=== PATIENT | male | born 1990 | race Caucasian/White ===

== ENCOUNTER 2017-06-15 16:15 | Emergency (ER) | payer SELFPAY ==
[~2017-06-15] VITALS: Ht 188 cm; Wt 113.5 kg
[~2017-06-15 16:15] MED LIST: ALPR.25 PO
[2017-06-15 16:17] VITALS: BP 152/100; PULSE 105; RESP 20; TEMP 98.6; O2SAT 99
[2017-06-15] MEDS ORDERED: SODIUM CHLORIDE 0.9% FLUSH 10 ML FLUSH IVF PRN (17:30)
[2017-06-15] MEDS ORDERED: KETOROLAC TROMETHAMINE 30 MG/ML (IVP) VIAL IV PUSH ONE (17:30)
[2017-06-15] MEDS ORDERED: METOCLOPRAMIDE HCL 10 MG/2 ML VIAL IV PUSH ONE (17:30)
--- NOTE | 2017-06-15 17:33 | PD ---
HPI Chief Complaint: Chest Pain Time Seen by Provider: 17:23 Travel History International Travel<30 days: No Contact w/Intl Traveler<30days: No Traveled to known affect area: No History of Present Illness HPI 27-year-old male here for evaluation of headache, chest pain, elevated blood pressure. Symptoms started 3 days ago with headache which the patient rates is diffuse, pressure-like. Headache is currently 6 out of 10, intermittently worse at times, improves slightly with ibuprofen/Tylenol. Patient also reports intermittent episodes of left-sided chest pressure/sharp pains that radiate to his left shoulder. Currently he denies having any chest pain. No known history of cardiac disease. He believes that there is family history of cardiac disease. No paresthesias or motor deficits. No dyspnea. Reports he has had a cough that is nonproductive. No neck pain or stiffness. He also complains of some intermittent blurry vision. States that he checked his blood pressure at home and noticed it to be as high as 160 systolic. PFSH Past Surgical History Other Surgery: Yes (LIVER BIOPSY 13 YEARS) Social History Alcohol Use: No Tobacco Use: No Allergies-Medications (Allergen,Severity, Reaction): Coded Allergies: No Known Allergies (Verified Adverse Reaction, Unknown, 06/15/17) Reported Meds & Prescriptions Reported Meds & Active Scripts Active Reported Xanax 0.25 Mg Tab (Alprazolam) 0.25 Mg Tab 0.25 Mg PO BID PRN Review of Systems Except as stated in HPI: all other systems reviewed are Neg Physical Exam Narrative GENERAL: Well-developed, well-nourished, notable, no apparent distress. SKIN: Focused skin assessment warm/dry. HEAD: Atraumatic. Normocephalic. EYES: Heels equal, round, 3 mm, reactive to light. No scleral icterus. No injection or drainage. ENT: No nasal bleeding or discharge. Mucous membranes pink and moist. NECK: Trachea midline. No JVD. CARDIOVASCULAR: Regular rate and rhythm. No murmur appreciated. Distal pulses brisk and equal bilaterally. RESPIRATORY: No accessory muscle use. Clear to auscultation. Breath sounds equal bilaterally. GASTROINTESTINAL: Abdomen soft, non-tender, nondistended. MUSCULOSKELETAL: No obvious deformities. No clubbing. No cyanosis. No edema. NEUROLOGICAL: Awake and alert. No obvious cranial nerve deficits. Motor grossly within normal limits. Normal speech. PSYCHIATRIC: Appropriate mood and affect; insight and judgment normal. Data Data Last Documented VS Vital Signs Date Time Temp Pulse Resp B/P (MAP) Pulse Ox O2 Delivery O2 Flow Rate FiO2 06/15/17 18:21 80 18 132/86 (101) 98 Room Air 06/15/17 17:19 98 06/15/17 16:17 98.6 Orders Orders Electrocardiogram (06/15/17 ) Electrocardiogram (06/15/17 17:28) Basic Metabolic Panel (Bmp) (06/15/17 17:28) Ckmb (Isoenzyme) Profile (06/15/17 17:28) Complete Blood Count With Diff (06/15/17:) Magnesium (Mg) (06/15/17:28) Prothrombin Time / Inr (Pt) (06/15/17:28) Act Partial Throm Time (Ptt) (06/15/17 17:28) Troponin I (06/15/17 17:28) Chest, Single Ap (06/15/17 17:28) Ecg Monitoring (06/15/17 17:28) Bilateral Bp Monitoring (06/15/17 17:28) Iv Access Insert/Monitor (06/15/17 17:28) Oximetry (06/15/17 17:28) Oxygen Administration (06/15/17 17:28) Sodium Chloride 0.9% Flush (Ns Flush) (06/15/17 17:30) Ct Brain W/O Iv Contrast(Rout) (06/15/17 ) Metoclopramide Inj (Reglan Inj) (06/15/17 17:30) Ketorolac Inj (Toradol Inj) (06/15/17 17:30) CKMB (06/15/17 17:53) CKMB% (06/15/17 17:53) Labs Laboratory Tests Test 06/15/17 17:53 White Blood Count 6.7 TH/MM3 Red Blood Count 5.24 MIL/MM3 Hemoglobin 16.9 GM/DL Hematocrit 45.3 % Mean Corpuscular Volume 86.5 FL Mean Corpuscular Hemoglobin 32.2 PG Mean Corpuscular Hemoglobin Concent 37.3 % Red Cell Distribution Width 12.5 % Platelet Count 197 TH/MM3 Mean Platelet Volume 8.2 FL Neutrophils (%) (Auto) 62.4 % Lymphocytes (%) (Auto) 27.1 % Monocytes (%) (Auto) 7.9 % Eosinophils (%) (Auto) 2.3 % Basophils (%) (Auto) 0.3 % Neutrophils # (Auto) 4.2 TH/MM3 Lymphocytes # (Auto) 1.8 TH/MM3 Monocytes # (Auto) 0.5 TH/MM3 Eosinophils # (Auto) 0.2 TH/MM3 Basophils # (Auto) 0.0 TH/MM3 CBC Comment AUTO DIFF Differential Comment AUTO DIFF CONFIRMED Platelet Estimate NORMAL Platelet Morphology Comment NORMAL Prothrombin Time 11.0 SEC Prothromb Time International Ratio 1.1 RATIO Activated Partial Thromboplast Time 30.1 SEC Blood Urea Nitrogen 6 MG/DL Creatinine 0.88 MG/DL Random Glucose 85 MG/DL Calcium Level 9.3 MG/DL Magnesium Level 2.3 MG/DL Sodium Level 137 MEQ/L Potassium Level 3.8 MEQ/L Chloride Level 102 MEQ/L Carbon Dioxide Level 29.7 MEQ/L Anion Gap 5 MEQ/L Estimat Glomerular Filtration Rate 105 ML/MIN Total Creatine Kinase 367 U/L Creatine Kinase MB 0.9 NG/ML Creatine Kinase MB % 0.2 % Troponin I LESS THAN 0.02 NG/ML MDM Medical Decision Making Medical Screen Exam Complete: Yes Emergency Medical Condition: Yes Interpretation(s) EKG: Sinus, rate 84, leftward axis, incomplete RBBB, no acute ischemic abnormality. Differential Diagnosis Tension headache, cluster headache, migraine headache, hypertensive urgency, SAH /meningitis/encephalitis less likely, ACS, pneumothorax, pericarditis, PE, pneumonia, musculoskeletal chest wall pain Narrative Course Vital signs reviewed. Blood pressure improved from 152/102 to 132/86 after the patient received Reglan and Toradol for headache and pain improved. CBC is unremarkable. BMP is unremarkable. Cardiac enzymes are negative. Chest x-ray: No acute cardiopulmonary abnormality. CT head: No acute disease. Patient was given IV Reglan and IV Toradol, and on reassessment he states his headache is significantly improved. He was made aware of all findings and is resting comfortably. His symptoms are not consistent with SAH/meningitis/ encephalitis, and I do not believe LP is warranted at this time. The patient agrees with this. He is stable for discharge home with outpatient follow-up with a primary care physician this week. He was informed on when to return to the emergency department. He verbalizes understanding and agreement with plan. Diagnosis Primary Impression: Headache Qualified Codes: R51 - Headache Additional Impressions: Elevated blood pressure reading Atypical chest pain Referrals: Primary Care Physician 3 days Additional Instructions: Follow-up with a primary care physician this week. Return to the emergency department for worsening symptoms or any other concerns. Disposition: 01 DISCHARGE HOME Condition: Stable Tariq Patton MD Jun 15, 2017 17:33
--- NOTE | 2017-06-15 17:54 | RADRPT ---
EXAM DATE/TIME: 06/15/2017 17:36 [facility] COMPARISON: No previous studies available for comparison. INDICATIONS : Chest pain and headache. MEDICAL HISTORY : None. SURGICAL HISTORY : Liver biopsy 13 years. ENCOUNTER: Initial ACUITY: 3 days PAIN SCORE: 6/10 LOCATION: Bilateral chest FINDINGS: Portable AP view of the chest demonstrates a normal-sized cardiac silhouette. No effusion, consolidat ion, or pneumothorax is visualized. The bones and soft tissues demonstrate no acute abnormality. EKG lines overlie the patient. CONCLUSION: No acute cardiopulmonary abnormality is identified. Sai Escobar MD on June 15, 2017 at 17:52 Board Certified Radiologist. This report was verified electronically.
[2017-06-15 18:04] LABS: AUTOMATED NEUTROPHIL # 4.2 TH/MM3 (1.8-7.7); BASOPHIL % 0.3 % (0.0-2.0); EOSINOPHIL # 0.2 TH/MM3 (0-0.4); EOSINOPHIL % 2.3 % (0.0-4.0); HEMATOCRIT 45.3 % (39.0-51.0); LYMPH % 27.1 % (9.0-44.0); LYMPHOCYTE # 1.8 TH/MM3 (1.0-4.8); MEAN CELL VOLUME 86.5 FL (80.0-100.0); MEAN CORPUSCULAR HEMOGLOBIN 32.2 PG (27.0-34.0); MONO % 7.9 % (0.0-8.0); NEUT % 62.4 % (16.0-70.0); PLATELET COUNT 197 TH/MM3 (150-450); RED BLOOD COUNT 5.24 MIL/MM3 (4.50-5.90); RED CELL DISTRIBUTION WIDTH 12.5 % (11.6-17.2); WHITE BLOOD COUNT 6.7 TH/MM3 (4.0-11.0)
[2017-06-15 18:11] LABS: HEMO FLAGS AUTO DIFF; MEAN CORPUSCULAR HGB CONC 37.3 % (32.0-36.0)
[2017-06-15 18:19] VITALS: BP 132/86; PULSE 69; RESP 18; O2SAT 100
[2017-06-15 18:20] VITALS: BP 130/84; PULSE 70
[2017-06-15 18:21] VITALS: BP 132/86; PULSE 80; RESP 18; O2SAT 98
[2017-06-15 18:34] LABS: ANION GAP 5 MEQ/L (5-15); BICARBONATE 29.7 MEQ/L (21.0-32.0); BLOOD UREA NITROGEN 6 MG/DL (7-18); CHLORIDE 102 MEQ/L (98-107); GLOMERULAR FILTRATION RATE 105 ML/MIN (>89); MAGNESIUM 2.3 MG/DL (1.5-2.5); POTASSIUM 3.8 MEQ/L (3.5-5.1); SODIUM (NA) 137 MEQ/L (136-145)
[2017-06-15 18:37] LABS: APTT (PATIENT) 30.1 SEC (24.3-30.1); CREATINE KINASE 367 U/L (39-308); INTERNATIONAL NORMALIZED RATIO 1.1 RATIO
[2017-06-15 18:49] LABS: CKMB 0.9 NG/ML (0.5-3.6)
--- NOTE | 2017-06-15 18:57 | RADRPT ---
EXAM DATE/TIME: 06/15/2017 18:38 [facility] COMPARISON: No previous studies available for comparison. INDICATIONS : Hypertensive headache x one week. RADIATION DOSE: 44.69 CTDIvol (mGy) MEDICAL HISTORY : Hypertension. SURGICAL HISTORY : liver biopsy ENCOUNTER: Initial ACUITY: 1 week PAIN SCALE: 8/10 LOCATION: cranial TECHNIQUE: Multiple contiguous axial images were obtained of the head. Using automated exposure control and adj ustment of the mA and/or kV according to patient size, radiation dose was kept as low as reasonably a chievable to obtain optimal diagnostic quality images. DICOM format image data is available electro nically for review and comparison. FINDINGS: CEREBRUM: The ventricles are normal for age. No evidence of midline shift, mass lesion, hemorrhage or acute in farction. No extra-axial fluid collections are seen. POSTERIOR FOSSA: The cerebellum and brainstem are intact. The 4th ventricle is midline. The cerebellopontine angle i s unremarkable. EXTRACRANIAL: The visualized portion of the orbits is intact. SKULL: The calvaria is intact. No evidence of skull fracture. CONCLUSION: No acute disease. Martin Pozo MD on June 15, 2017 at 18:56 Board Certified Radiologist. This report was verified electronically.
[2017-06-15 18:58] LABS: PLATELET ESTIMATE SMEAR NORMAL (NORMAL); PLATELET MORPHOLOGY NORMAL (NORMAL); SCAN/DIFF AUTO DIFF CONFIRMED
--- NOTE | 2017-06-16 12:44 | EKG ---
Date Performed: 06/15/2017 Time Performed: 16:34:17 PTAGE: 27 years EKG: Sinus rhythm INCOMPLETE RIGHT BUNDLE BRANCH BLOCK BORDERLINE ECG PREVIOUS TRACING : 09/04/2012 13.13 Since previous tracing, the right ventricular conduction di sturbance is new. DOCTOR: Tres Kowalski Interpretating Date/Time 06/16/2017 12:42:41
== END 2017-06-15 21:23 | disposition home or self-care (01) ==
LOC: NEPD 16:15
DX: R51 Headache (principal); R03.0 Elevated blood-pressure reading, without diagnosis of hypertension; R07.89 Other chest pain; R05 Cough; I45.10 Unspecified right bundle-branch block
CPT/HCPCS: 70450; 71010; 80048; 82550; 82552; 83735; 84484; 85025; 85610; 85730; 93005; 96374; 96375; 99285; J1885; J2765